=== PATIENT | female | born 1950 | race Caucasian/White ===

== ENCOUNTER 2019-11-11 23:47 | Emergency (ER) | payer MEDICARE ==
[~2019-11-11] VITALS: Ht 167.6 cm; Wt 63.5 kg
--- NOTE | 2019-11-11 23:55 | ER.PDOC ---
General Stated Complaint: ALTERED LOC Time seen by MD: 23:48 Source: patient, EMS Exam Limitations: no limitations History of Present Illness Initial Comments Pt arrives by EMS s/p "altered LOC". Her called 911 for assistance and upon EMS arrival, pt was only vaguely responsive to pain (GCS 9: Eyes open to pain (2), Localizes pain (5), Incomprehensible sounds (2) ); paramedics states she quickly began to rouse when they placed her on the spine board for transport. Her poc gluc at the scene was 134. Patient states this is one of her frequent "allergic reactions" that are usually quite severe and seldom able to determine what exposure has caused her symptoms. Character of AMS: decreased responsiveness Context: found unresponsive Usually: orientedx3 Decreased Ability to Stand: cannot walk, cannot stand Past Medical History Medical History: other (recurrent severe allergic reactions) Review of Systems Constitutional: no symptoms reported Eyes: no symptoms reported Ears, Nose, Mouth, Throat: no symptoms reported Respiratory: no symptoms reported Cardiovascular: no symptoms reported Gastrointestinal: no symptoms reported Genitourinary: no symptoms reported Musculoskeletal: no symptoms reported Skin: no symptoms reported Psychiatric/Neurological: no symptoms reported Endocrine: no symptoms reported Physical Exam General Appearance: alert, no distress HEENT: no apparent trauma, EOM's intact, no nystagmus, PERRL, ENT inspection nml, pharynx nml, airway intact, oral exam nml Neuro/Psych: oriented x3, nml speech/cognition, nml mood/affect Cranial Nerves: nml as tested Peripheral Exam: 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 (11/11/19 23:48) Xr Chest 1v (11/11/19 23:48) Ct Head Wo Contrast (11/11/19 23:48) Urinalysis (11/11/19 23:48) Ekg-Routine (11/11/19 23:48) Ammonia (11/11/19 23:48) Troponin I (11/11/19 23:48) Saline Lock (11/11/19 23:48) Drug Screen Medical(Ml) (11/11/19 23:48) Laboratory Tests Test 11/12/19 00:00 White Blood Count 10.6 10^3/uL (4.5-11.0) Red Blood Count 4.78 10^6/uL (4.00-5.20) Hemoglobin 14.4 g/dL (12.0-15.0) Hematocrit 42.2 % (36.0-46.0) Mean Corpuscular Volume 88.3 fL (78-100) Mean Corpuscular Hemoglobin 30.1 pg (26-34) Mean Corpuscular Hemoglobin Concent 34.1 g/dL (33-37) Red Cell Distribution Width 14.5 % (11.5-14.5) Platelet Count 376 10^3/uL (150-400) Mean Platelet Volume 10.4 fL (7.8-11.0) Neutrophils (%) (Auto) 58.6 % (41.0-85.0) Lymphocytes (%) (Auto) 31.8 % (24.0-44.0) Monocytes (%) (Auto) 8.1 % (5.0-12.0) Neutrophils # (Auto) 6.2 10^3/uL (1.8-7.7) Lymphocytes # (Auto) 3.4 10^3/uL (1.0-4.8) Monocytes # (Auto) 0.9 10^3/uL (0.3-0.8) H Absolute Immature Granulocyte (auto 0.02 10^3 u/L (0-2) Absolute Eosinophils (auto) 0.1 10^3/uL (0.0-0.2) Immature Granulocytes % 0.20 % (0.00-0.50) Eosinophils % 1.0 % (0.0-5.0) Basophils % 0.3 % (0.0-0.2) H Basophils # 0.0 10^3/uL (0.0-0.1) Sodium Level 142 mmol/L (132-145) Potassium Level 3.3 mmol/L (3.6-5.2) L Chloride Level 106.0 mmol/L (96-109) Carbon Dioxide Level 25.4 mmol/L (20.0-32) Anion Gap 13.9 Blood Urea Nitrogen 10 mg/dL (7-18) Creatinine 0.65 mg/dL (0.59-1.40) Estimated GFR () 109.4 (>/=60) BUN/Creatinine Ratio 15.0 Glucose Level 121 mg/dL (70-110) H Calcium Level 10.4 mg/dL (8.4-10.5) Total Bilirubin 0.4 mg/dL (0.2-1.0) Aspartate Amino Transferase (AST) 28 U/L (0-35) Alanine Aminotransferase (ALT) 33 U/L (12-78) Alkaline Phosphatase 107 U/L (50-136) Ammonia < 10 umol/L (11-35) L Total Creatine Kinase 347 U/L (26-192) H Troponin I 0.05 ng/mL (0.00-0.05) Total Protein 7.2 g/dL (6.4-8.2) Albumin 4.1 g/dL (3.4-5.0) Globulin 3.1 Progress Progress all studies except CPK return normal; arrives and shares history that patient was ambulatory but non verbal throughout episode; Patient now states she was aware of what was going on throughout episode but "air-locked" and unable to speak due to air hunger; she states she has had 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 Return to the ER for any emergent concern. Duration or Time Spent with Pa: 1 hour NAVEED QUIGLEY DO Nov 11, 2019 23:55
--- NOTE | 2019-11-11 23:58 | PCM.EKG ---
[facility] [place], [place] Test Date: 2019-11-11 Test Time: 23:53:42 Pat Name: TIFFANY NAVAS Department: Patient ID: [facility]-[id number] Room: Gender: F New Account Interviewer: : 1950 Requested By: NAVEED DANIELS Order Number: [id number] Reading MD: Fiordaliza Daniels Measurements Intervals [place] Rate: 80 P: 5 FL: 148 QRS: -26 QRSD: 137 T: 53 QT: 436 QTc: 503 Interpretive Statements Sinus rhythm Right bundle branch block Probable inferior infarct, old No previous ECG available for comparison Electronically Signed On 11-14-2019 14:51:12 [employer] by Fiordaliza Daniels Please click the below link to view image of tracing.
[2019-11-12 00:13] LABS: BASOPHIL % 0.3 % (0.0-0.2); EOSINOPHIL # 0.1 10^3/uL (0.0-0.2); LYMPHOCYTES # 3.4 10^3/uL (1.0-4.8); LYMPHOCYTES % 31.8 % (24.0-44.0); MEAN CORP HGB 30.1 pg (26-34); MONOCYTES # 0.9 10^3/uL (0.3-0.8); MONOCYTES % 8.1 % (5.0-12.0); NEUTROPHIL # 6.2 10^3/uL (1.8-7.7); NEUTROPHILS % 58.6 % (41.0-85.0); RED CELL DISTRIBUTION WIDTH 14.5 % (11.5-14.5)
[2019-11-12 00:34] LABS: CALCIUM 10.4 mg/dL (8.4-10.5); CARBON DIOXIDE 25.4 mmol/L (20.0-32)
[2019-11-12 00:40] VITALS: BP 137/86
--- NOTE | 2019-11-12 01:08 | DIREP ---
PROCEDURE:CHEST 1 VIEW COMPARISON:None. INDICATIONS:decreased consciousness FINDINGS: LUNGS/PLEURA:No significant pulmonary parenchymal abnormalities. No effusions. VASCULATURE:Normal. Unremarkable pulmonary vasculature. CARDIAC:Normal heart size. Mild calcification and tortuosity of the thoracic aorta. MEDIASTINUM:Normal. No visible mass or adenopathy. BONES:Normal. No fracture or visible bony lesion. OTHER:Clothing button artifact or noted over the upper chest. CONCLUSION:No acute cardiac or pulmonary disease. Dictated by: Alexx Guzmán M.D. on 11/12/2019 at 01:07 AM
--- NOTE | 2019-11-12 01:09 | DIREP ---
PROCEDURE:CT HEAD OR BRAIN W/O CONTRAST COMPARISON:None. INDICATIONS:altered mental status TECHNIQUE:CT images were created without intravenous contrast. FINDINGS: VENTRICLES: The ventricles are normal in size and configuration. CEREBRUM: Normal cerebral morphology with appropriate frausto white matter differentiation. CEREBELLUM: Negative. BRAINSTEM: Negative. BASAL CISTERNS: Negative. SKULL: Normal. No fractures. No lytic or blastic lesion of bone. SINUSES: Normal. OTHER: No acute intracranial hemorrhage, large territorial infarct, CT evidence of acute infarct, abnormal extra-axial fluid collection, or intracranial mass effect. CONCLUSION: Normal noncontrast CT scan of the brain. Dictated by: Alexx Guzmán M.D. on 11/12/2019 at 01:07 AM
== END 2019-11-12 01:07 | disposition home or self-care (01) ==
LOC: ER 23:47 → EDBD 23:47 → ER 11-12 01:07
DX: R40.4 Transient alteration of awareness (principal); R79.1 Abnormal coagulation profile
CPT/HCPCS: 36415; 70450; 71045; 80053; 82140; 82550; 84484; 85025; 85610; 85730; 93005; 99285